=== PATIENT | female | born 1935 | race Caucasian/White ===

== ENCOUNTER 2016-12-30 07:11 | Day surgery (SDC) | payer MEDICARE ==
[~2016-12-30 07:11] MED LIST: VANCOMYCIN/NS 1 GM/250 ML 1 GM/250 ML BAG IV NR
[2016-12-30] MEDS ORDERED: XYLOCAINE MPF 2% ONE (07:22)
[2016-12-30] MEDS ORDERED: VERSED ONE (07:22)
[2016-12-30] MEDS ORDERED: DILAUDID ONE (07:22)
[2016-12-30] MEDS ORDERED: DIPRIVAN 10 MG/ML IV ONE (07:22)
--- NOTE | 2016-12-30 08:14 | Anesthesia Consultation ---
Anesthesia Consult and Med Hx Date of service: 12/30/16 - Airway Anesthetic Teeth Evaluation: Good, Caps, Crowns, Bridges ROM Head & Neck: Adequate Mental/Hyoid Distance: Adequate Mallampati Class: Class II Intubation Access Assessment: Probably Good - Pre-Operative Health Status ASA Pre-Surgery Classification: ASA2 Proposed Anesthetic Plan: MAC Nerve Block: Pop - Pulmonary Hx Smoking: No Hx Sleep Apnea: No - Cardiovascular System Hx Hypertension: No (high cholesterol) - Central Nervous System Hx Psychiatric Problems: No - Endocrine Hx Hypothyroidism: Yes - Hematic Hx Anemia: No - Other Systems Hx Cancer: No
--- NOTE | 2016-12-30 08:14 | Anesthesia Day of Surgery ---
Anesthesia Day of Surgery - Day of Surgery Patient Examined: Yes Patient H&P Reviewed: Yes Patient is NPO: Yes
[2016-12-30] MEDS ORDERED: NACL BACTERIOSTATIC INFILTRATI ONE (08:44)
[2016-12-30] MEDS ORDERED: VERSED IV NR (09:00)
[2016-12-30] MEDS ORDERED: PEPCID IV NR (09:00)
[2016-12-30] MEDS ORDERED: LACTATED RINGERS 1,000 ML IV SCH (09:00)
[2016-12-30 09:13] LABS: Basophils % (Auto) 0.3 % (0.0-1.8); Eosinophils % (Auto) 1.7 % (0.0-4.3); Hematocrit 33.7 % (30.3-42.9); Hemoglobin 11.6 gm/dl (10.1-14.3); Mean Corpuscular HGB Conc 34 % (30-34); Mean Corpuscular Hemoglobin 32 pg (28-32); Mean Corpuscular Volume 93 fl (79-97); Platelet Count 195 K/mm3 (140-440); Red Blood Count 3.65 M/mm3 (3.65-5.03); Red Cell Distribution Width 14.2 % (13.2-15.2); White Blood Count 8.1 K/mm3 (4.5-11.0)
[2016-12-30] MEDS ORDERED: MARCAINE-EPI 0.5%-1:200,000 INFILTRATI ONE (09:27)
[2016-12-30] MEDS ORDERED: DECADRON ONE (09:29)
[2016-12-30] MEDS ORDERED: MARCAINE 0.5% 30 ML INFILTRATI ONE (11:14)
[2016-12-30] MEDS ORDERED: NEOSPORIN GU IR ONE ×2 (11:15→12:04)
--- NOTE | 2016-12-30 11:36 | Short Stay Summary ---
Short Stay Documentation Date of service: 12/30/16 - History H&P: obtained from office - Allergies and Medications Current Medications: Allergies Penicillins Allergy (Verified 01/31/15 10:54) Swelling Home Medications Medication Instructions Recorded Confirmed Last Taken Type Crestor 5 mg PO DAILY 01/31/15 12/29/16 02/05/15 09:00 History Synthroid 50 mcg PO DAILY 01/31/15 12/29/16 02/05/15 09:00 History Active Medications Famotidine (Pepcid) 20 mg IV PREOP NR Stop: 12/30/16 23:59 Last Admin: 12/30/16 08:57 Dose: 20 mg Vancomycin HCl (Vancomycin/Ns 1 Gm/250 Ml) 1 gm in 250 mls @ 167.007 mls/hr IV PREOP NR PRN Reason: Protocol Stop: 12/30/16 23:02 Last Admin: 12/30/16 10:30 Dose: 167.007 mls/hr Lactated Ringer's (Lactated Ringers) 1,000 mls @ 75 mls/hr IV DIRECT BESSIE Last Admin: 12/30/16 08:56 Dose: 75 mls/hr Midazolam HCl (Versed) 1 mg IV PREOP NR Stop: 12/30/16 23:59 Last Admin: 12/30/16 09:51 Dose: 1 mg - Brief post op/procedure progress note Date of procedure: 12/30/16 Pre-op diagnosis: hammer toes left 2nd-3rd Post-op diagnosis: same Procedure: arthrodesis PIP jopint left 2 and 3rd toes Anesthesia: regional Surgeon: BLANE GREEN Estimated blood loss: minimal Pathology: none Condition: stable - Disposition Condition at discharge: Stable Disposition: DISCHARGED TO HOME OR SELFCARE Short Stay Discharge Plan Follow up with: EBONI GONZALEZ MD [Primary Care Provider] - 7 Days
[2016-12-30] MEDS ORDERED: NACL 0.9% IR ONE (12:04)
[2016-12-30] MEDS ORDERED: MARCAINE 0.5% INFILTRATI ONE (12:04)
[2016-12-30] MEDS ORDERED: NACL 0.9% 1000 ML 1,000 ML ONE (12:10)
[2016-12-30] MEDS ORDERED: ZOFRAN ONE (12:10)
--- NOTE | 2016-12-30 12:53 | XRay Report ---
INTRAOPERATIVE LEFT TOES RADIOGRAPH INDICATION: Left hammer toes. PIP joint arthrodesis of second and third toes. COMPARISON: None. FINDINGS: Intraoperative fluoroscopic guidance provided. Images demonstrate thin screws traversing the PIP joints of the second and third toes. Herrera's toe incidentally noted. CONCLUSION: Intraoperative fluoroscopic guidance provided, as described. Thank you for the opportunity to participate in this patient's care.
[2016-12-30 15:59] VITALS: BP 121/76
--- NOTE | 2016-12-31 01:39 | Operative Report ---
PREOPERATIVE DIAGNOSIS: Hammertoes, second and third, left foot. POSTOPERATIVE DIAGNOSIS: Hammertoes, second and third, left foot. PROCEDURE: Arthrodesis, PIP joint and DIP joint of the second and third left toes. SURGEON: Cathleen Costa MD [employer]: Renard Cevallos RN ANESTHESIA: Local block, general. COMPLICATIONS: None. DESCRIPTION OF THE PROCEDURE: Once the patient was in the surgical room, a time-out was carried out to identify the patient and procedure, prepping and draping of the patient's foot done in the usual fashion. The procedure was carried out by working on the first and the second toes. A transverse incision about 0.5 to 6 mm was done across the dorsal of the PIP joint. A second incision was carried out below that 4 to 5 mm lower. This allowed for ____, transected the extensor tendon exposing the joint. Once this was done, the distal end of the phalanx was resected ____ vertically with a hand chisel. About 5 mm of bone was removed. The cartilage on the mid phalanx was cleaned out. Once it was done, the toe was manipulated and placed on extension without any problems. At this point, the procedure was continued with using fluoroscopy and using a drill. A K-wire was drilled from the proximal end of the mid phalanx all the way down to the tip of the toe and incision was carried out at the tip of toe about 3 mm in length to allow for exiting of the pin. Once the pin was fully out, the pin was reversed and advanced into the proximal phalanx of the toe without any problems. This was checked with fluoroscopy. Once this was done, the area was measured, a 30 mm ____ screw was being inserted. The first drilling of the cortex of the toe was done and also DIP joint. Following that the screw was being inserted by hand with a screwdriver all the way down across the DIP and PIP joints. This was checked on the fluoroscopy. Once this was done, the procedure was basically terminated, guidewire was removed. The wound irrigated. The wound closed with interrupted nylon sutures to close the skin on the dorsal of the PIP joint and the tip of the toe. Third Toe: The third toe was ____ entered and the procedure was carried out similar to the procedure on the second toes, also 30 mm Acutrak compression screw was inserted. X-ray fluoroscopy demonstrated anatomic reduction. The procedure then terminated. All the wounds were closed and compression bandage applied. The patient was taken to the Recovery Room doing well at the end of the procedure. There were no complications. JOB# [id number] SARAHY/SHAHLA
== END 2016-12-30 16:15 | disposition home or self-care (01) ==
LOC: OR 07:11
DX: M20.42 Other hammer toe(s) (acquired), left foot (principal); E78.00 Pure hypercholesterolemia, unspecified; E03.9 Hypothyroidism, unspecified; Z79.899 Other long term (current) drug therapy
CPT/HCPCS: 28285; 36415; 64450; 73660; 85025; C1713; J1100; J1170; J2250; J2405; J2704; J3370; J7030; J7120

== ENCOUNTER 2018-08-20 10:19 | Outpatient (CLI) | payer MEDICARE ==
--- NOTE | 2018-08-20 14:43 | Mammography Report ---
BILATERAL DIGITAL SCREENING MAMMOGRAM with CAD : 08/20/18 10:19:00 CLINICAL: Routine screening. COMPARISON:10/28/16 FINDINGS: The breasts are heterogeneously dense, which may obscure small masses. No mass, architectural distortion or suspicious calcifications. IMPRESSION: No mammographic evidence of malignancy. BI-RADS CATEGORY: 2 -- Benign RECOMMENDATION: Routine mammographic screening in one year. COMMENT: Patient follow-up letters are generated by our [employer] application.
== END 2018-08-20 10:20 | disposition home or self-care (01) ==
LOC: MAMMO 10:19
PROVIDERS: ATTEND Internal Medicine
DX: Z12.31 Encounter for screening mammogram for malignant neoplasm of breast (principal); I10 Essential (primary) hypertension; E78.00 Pure hypercholesterolemia, unspecified; E03.9 Hypothyroidism, unspecified
CPT/HCPCS: 77067

== ENCOUNTER 2021-06-07 09:45 | Outpatient (CLI) | payer MEDICARE ==
--- NOTE | 2021-06-07 11:25 | Mammography Report ---
DIGITAL SCREENING MAMMOGRAM WITH CAD, 06/07/2021 CLINICAL INFORMATION / INDICATION: Routine screening mammography. SCREENING MAMMOGRAM TECHNIQUE: Digital bilateral 2D mammography was obtained in the craniocaudal and mediolateral obliqu e projections. This examination was interpreted with the benefit of Computer-Aided Detection analysis . COMPARISON: 08/20/2018. 10/28/2016. FINDINGS: Breast Density: There are scattered areas of fibroglandular density. No dominant mass, suspicious calcifications, or architectural distortion in either breast. IMPRESSION: No mammographic evidence of malignancy. Follow up recommendation: Routine yearly BI-RADS Category 1: Negative. A "normal" or negative report should not discourage follow up or biopsy of a clinically significant f inding. A written summary of these findings will be mailed to the patient. The patient will be entered into a mammography reporting system which will generate a reminder letter for the patient's next appointmen t at the appropriate interval. The [employer] recommends yearly mammograms starting at age 40 and continuing as l pema as a woman is in good health. Breast MRI is recommended for women with an approximate 20-25% or greater lifetime risk of breast cancer, including women with a strong family history of breast or ova michael cancer or who have been treated for Hodgkin's disease. Signer Name: Magnus Mcfarland MD Signed: 06/07/2021 11:20 AM Workstation Name: [id number]
--- NOTE | 2021-06-07 11:39 | Mammography Report ---
DEXA BONE DENSITY SCAN INDICATION / CLINICAL INFORMATION: OSTEOPOROSIS. 86 years Female COMPARISON: 10/28/2016 LUMBAR SPINE, L1-L4: - Bone mineral density (BMD) = 0.778 g/cm2. - T-score = -2.4 - Z-score = 0.4 Change (%) since most recent prior (if available): +4.5 LEFT HIP, TOTAL : - Bone mineral density (BMD) = 0.697 g/cm2. - T-score = -2.0 - Z-score = 0.3 Change (%) since most recent prior (if available): -1.2 IMPRESSION: 1. WHO Classification: Osteopenia. Fracture Risk: Increased. 2. 10-Year Fracture Risk (FRAX) = Major Osteoporotic 15% / Hip: 4.1% BMD Reporting Guidelines (ISCD, 2015) BMD Reporting in Postmenopausal Women and in Men Age 50 and Older - T-scores are preferred. - The WHO densitometric classification is applicable. BMD Reporting in Females Prior to Menopause and in Males Younger Than Age 50 - Z-scores, not T-scores, are preferred. This is particularly important in children. - A Z-score of -2.0 or lower is defined as below the expected range for age, and a Z-score above -2.0 is within the expected range for age. - Osteoporosis cannot be diagnosed in men under age 50 on the basis of BMD alone. - The WHO diagnostic criteria may be applied to women in the menopausal transition. http://www.iscd.org/official-positions/0586-unfv-spgddjlo-positions-adult/ Signer Name: Gonzalo Allen MD Signed: 06/07/2021 11:35 AM Workstation Name: [email or web address]
== END 2021-06-07 09:46 | disposition home or self-care (01) ==
LOC: MAMMO 09:45
PROVIDERS: ATTEND Internal Medicine
DX: Z12.31 Encounter for screening mammogram for malignant neoplasm of breast (principal); M85.88 Other specified disorders of bone density and structure, other site
CPT/HCPCS: 77067; 77080